=== PATIENT | female | born 1935 | race Caucasian/White ===

== ENCOUNTER 2019-05-26 19:00 | Inpatient (IN) ==
[2019-05-26 20:54] LABS: Basophils % 0.1 % (0.0-0.8); Hematocrit 40.8 VOL% (35.7-47.0); Hemoglobin 12.7 GM/DL (12.0-16.0); Lymphocytes # 0.8 10*3/uL (1.4-4.0); Mean Corpuscular HGB Conc 31.1 GM/DL (32-36); Mean Corpuscular Volume 90.9 FL (87-102); Mean Platelet Volume 9.1 FL (9.6-12.0); Monocytes % 2.6 % (1.7-12.7); Neutrophils % 88.3 % (38.7-73.9); Platelet Count 170 T/CUMM (130-400); Red Blood Count 4.49 MC/CUMM (3.8-5.5); Red Cell Distribution Width 15.9 % (9.3-17.3); White Blood Count 9.7 T/CUMM (4-12)
[2019-05-26 21:07] LABS: Ferritin 237.8 ng/ml (8-252); Osmolality,Calculated 283.5 MOS/KG (273-304)
[2019-05-26] MEDS ORDERED: DEXTROSE 50% 25 GM/50 ML VIAL IV PRN ×2 (23:11→23:17)
[2019-05-26] MEDS ORDERED: GLUCAGON 1 MG VIAL IM PRN (23:11)
[2019-05-26] MEDS ORDERED: ACETAMINOPHEN 325 MG TABLET PO PRN (23:17)
[2019-05-26] MEDS ORDERED: ONDANSETRON 4 MG/2 ML VIAL IV PRN (23:17)
[2019-05-26] MEDS ORDERED: guaiFENesin/CODEINE 5 ML LIQUID PO PRN (23:26)
[2019-05-26] MEDS ORDERED: AZITHROMYCIN INJ 500 MG in SODIUM CHLORIDE 0.9% 250 ML IV SCH (23:30)
[2019-05-27] MEDS: SODIUM CHLORIDE 0.9% 1,000 ML IV SCH ×2 (03:30→23:35)
[2019-05-27] MEDS: AZITHROMYCIN 250 MG TABLET PO SCH ×2 (03:30→10:14)
[2019-05-27] MEDS: cefTRIAXone 1,000 MG in SYRINGE 1 EACH IV SCH (03:30)
[2019-05-27 05:01] LABS: Amorphous Crystals,Urine Occasional /HPF (Few); Apearance,Urine CLEAR (Clear); Bacteria,Urine Occasional /HPF (Few); Bilirubin,Urine Negative (Negative); Blood, Urine Negative (Negative); Glucose,Urine (UA) >=500 mg/dL (Negative); Hyaline Casts,Urine 1 /LPF (0-3); Ketones,Urine Negative (Negative); Mucus,Urine Occasional /LPF (Occasional); Nitrite,Urine Negative (Negative); Protein,Urine 30 MG/DL; RBC,Urine <1 /HPF (0-4); Squamous Epithelial Cell,Urine Occasional /HPF (0-10); Urine Color Yellow (Yellow); Urine Specific Gravity 1.014 (1.001-1.035); Urine Urobilinogen < 2.0 EU/DL (0.2-1.0); WBC,Urine <1 /HPF (0-6)
[2019-05-27 07:14] LABS: Basophils % 0.2 % (0.0-0.8); Hematocrit 38.5 VOL% (35.7-47.0); Hemoglobin 12.6 GM/DL (12.0-16.0); Immature Granulocytes Absolute 0.12 #; Lymphocytes # 1.5 10*3/uL (1.4-4.0); Lymphocytes % 11.7 % (21.3-54.2); Mean Corpuscular HGB Conc 32.7 GM/DL (32-36); Mean Corpuscular Volume 88.5 FL (87-102); Mean Platelet Volume 9.3 FL (9.6-12.0); Monocytes % 4.6 % (1.7-12.7); Neutrophils % 82.5 % (38.7-73.9); Platelet Count 290 T/CUMM (130-400); Red Blood Count 4.35 MC/CUMM (3.8-5.5); Red Cell Distribution Width 15.9 % (9.3-17.3); White Blood Count 12.4 T/CUMM (4-12)
[2019-05-27] MEDS: INSULIN REGULAR 100 UNIT/ML SUBCUT SCH ×4 (09:31→21:55)
[2019-05-27] MEDS: PANTOPRAZOLE 40 MG TABLET PO SCH (10:13)
[2019-05-27] MEDS: ENOXAPARIN 30 MG/0.3 ML SYRINGE SUBCUT SCH (10:13)
[2019-05-27 12:29] LABS: Alanine Aminotransferase 40 U/L (13-56); Albumin 2.6 G/DL (3.4-5.0); Alkaline Phosphatase 54 U/L (45-117); Aspartate Amino Transferase 44 U/L (0-37); Bilirubin,Total < 0.39 MG/DL (0.2-1.0); Blood Urea Nitrogen 23 MG/DL (7-18); Calcium 8.3 MG/DL (8.5-10.1); Estimated Glom Filtration Rate 64 ML/MIN; Glucose 116 MG/DL (74-106); Osmolality,Calculated 272.2 MOS/KG (273-304); Total Protein 6.6 G/DL (6.4-8.3)
[2019-05-27] MEDS: predniSONE 20 MG TABLET PO SCH (21:42)
[2019-05-27] MEDS: GABAPENTIN 300 MG CAPSULE PO SCH (21:42)
[2019-05-28] MEDS: cefTRIAXone 1,000 MG in SYRINGE 1 EACH IV SCH ×2 (01:35→23:49)
[2019-05-28] MEDS: INSULIN REGULAR 100 UNIT/ML SUBCUT SCH ×4 (09:03→23:23)
[2019-05-28] MEDS: GABAPENTIN 300 MG CAPSULE PO SCH ×2 (09:05→23:22)
[2019-05-28] MEDS: predniSONE 20 MG TABLET PO SCH ×3 (09:05→23:22)
[2019-05-28] MEDS: MULTIVITAMIN (CENTRUM) TABLET PO SCH (09:05)
[2019-05-28] MEDS: AZITHROMYCIN 250 MG TABLET PO SCH (09:05)
[2019-05-28] MEDS: PANTOPRAZOLE 40 MG TABLET PO SCH (09:05)
[2019-05-28] MEDS: ENOXAPARIN 30 MG/0.3 ML SYRINGE SUBCUT SCH (09:05)
[2019-05-28] MEDS: COENZYME Q10 100 MG CAPSULE PO SCH (09:05)
[2019-05-28] MEDS: SODIUM CHLORIDE 0.9% 1,000 ML IV SCH (16:45)
[2019-05-28 17:10] LABS: Basophils # 0.1 10*3/uL (0.0-0.2); Basophils % 0.3 % (0.0-0.8); Hematocrit 43.3 VOL% (35.7-47.0); Hemoglobin 14.1 GM/DL (12.0-16.0); Immature Granulocytes % 0.7 %; Immature Granulocytes Absolute 0.15 #; Lymphocytes # 1.1 10*3/uL (1.4-4.0); Lymphocytes % 4.8 % (21.3-54.2); Mean Corpuscular HGB Conc 32.6 GM/DL (32-36); Mean Corpuscular Volume 87.3 FL (87-102); Mean Platelet Volume 9.4 FL (9.6-12.0); Monocytes % 2.4 % (1.7-12.7); Neutrophils % 91.8 % (38.7-73.9); Platelet Count 341 T/CUMM (130-400); Red Blood Count 4.96 MC/CUMM (3.8-5.5); Red Cell Distribution Width 15.9 % (9.3-17.3)
[2019-05-28 17:12] LABS: White Blood Count 22.5 T/CUMM (4-12)
[2019-05-28 17:16] LABS: Osmolality,Calculated 293.3 MOS/KG (273-304)
[2019-05-28 17:19] LABS: Band Neutrophils 5 % (0-10); Burr Cells Slight; Lymphocytes 4 % (20-55); Platelet Estimate Normal; Poikilocytosis Slight; Segmented Neutrophils 88 % (50-85); Total Cells Counted 100
[2019-05-29] MEDS ORDERED: ZINC SULFATE 220 MG CAPSULE PO ONE (02:00)
[2019-05-29] MEDS: HYDROXYCHLOROQUINE 200 MG TABLET PO SCH ×2 (03:00→14:33)
[2019-05-29 06:09] LABS: Basophils # 0.1 10*3/uL (0.0-0.2); Basophils % 0.2 % (0.0-0.8); Hemoglobin 13.5 GM/DL (12.0-16.0); Immature Granulocytes % 0.9 %; Immature Granulocytes Absolute 0.21 #; Lymphocytes # 1.4 10*3/uL (1.4-4.0); Lymphocytes % 5.8 % (21.3-54.2); Mean Corpuscular HGB Conc 31.4 GM/DL (32-36); Mean Corpuscular Volume 91.3 FL (87-102); Mean Platelet Volume 9.8 FL (9.6-12.0); Monocytes % 2.8 % (1.7-12.7); Neutrophils % 90.3 % (38.7-73.9); Platelet Count 325 T/CUMM (130-400); Red Blood Count 4.71 MC/CUMM (3.8-5.5); White Blood Count 24.2 T/CUMM (4-12)
[2019-05-29 06:30] LABS: Calcium 8.9 MG/DL (8.5-10.1)
[2019-05-29 06:37] LABS: Lymphocytes 4 % (20-55); Platelet Estimate Normal; Segmented Neutrophils 93 % (50-85); Total Cells Counted 100
[2019-05-29] MEDS: predniSONE 20 MG TABLET PO SCH ×3 (09:31→21:55)
[2019-05-29] MEDS: GABAPENTIN 300 MG CAPSULE PO SCH ×2 (09:31→21:55)
[2019-05-29] MEDS: MULTIVITAMIN (CENTRUM) TABLET PO SCH (09:31)
[2019-05-29] MEDS: COENZYME Q10 100 MG CAPSULE PO SCH (09:31)
[2019-05-29] MEDS: AZITHROMYCIN 250 MG TABLET PO SCH (09:31)
[2019-05-29] MEDS: ENOXAPARIN 30 MG/0.3 ML SYRINGE SUBCUT SCH (09:32)
[2019-05-29] MEDS: PANTOPRAZOLE 40 MG TABLET PO SCH (09:32)
[2019-05-29] MEDS: CEFEPIME 1,000 MG in SODIUM CHLORIDE 0.9% 100 ML IV SCH ×3 (09:32→21:55)
[2019-05-29] MEDS: INSULIN REGULAR 100 UNIT/ML SUBCUT SCH ×4 (11:09→22:45)
[2019-05-29] MEDS: SODIUM CHLORIDE 0.9% 1,000 ML IV SCH (13:10)
[2019-05-30] MEDS: CEFEPIME 1,000 MG in SODIUM CHLORIDE 0.9% 100 ML IV SCH ×4 (04:30→23:24)
[2019-05-30 05:50] LABS: Basophils % 0.1 % (0.0-0.8); Hemoglobin 9.1 GM/DL (12.0-16.0); Immature Granulocytes % 1.1 %; Immature Granulocytes Absolute 0.18 #; Lymphocytes # 0.7 10*3/uL (1.4-4.0); Lymphocytes % 4.2 % (21.3-54.2); Mean Corpuscular HGB Conc 32.5 GM/DL (32-36); Mean Corpuscular Volume 89.2 FL (87-102); Mean Platelet Volume 9.3 FL (9.6-12.0); Monocytes % 2.2 % (1.7-12.7); Neutrophils % 92.4 % (38.7-73.9); Platelet Count 207 T/CUMM (130-400); Red Blood Count 3.14 MC/CUMM (3.8-5.5); Red Cell Distribution Width 15.6 % (9.3-17.3); White Blood Count 16.5 T/CUMM (4-12)
[2019-05-30] MEDS ORDERED: HYDROXYCHLOROQUINE 200 MG TABLET PO SCH (06:00)
[2019-05-30 06:22] LABS: Calcium 6.5 MG/DL (8.5-10.1); Osmolality,Calculated 286.3 MOS/KG (273-304)
[2019-05-30 06:28] LABS: Band Neutrophils 12 % (0-10); Lymphocytes 4 % (20-55); Segmented Neutrophils 81 % (50-85); Total Cells Counted 100
[2019-05-30 06:29] LABS: Hypochromasia 1+; Microcytosis Slight; Polychromasia Slight
[2019-05-30 06:30] LABS: Platelet Estimate Normal
[2019-05-30] MEDS ORDERED: AZITHROMYCIN 250 MG TABLET PO SCH (11:00)
[2019-05-30] MEDS: POTASSIUM CHLORIDE 20 MEQ TABLET PO SCH ×3 (11:52→21:09)
[2019-05-30] MEDS: GABAPENTIN 300 MG CAPSULE PO SCH ×2 (11:52→21:00)
[2019-05-30] MEDS: INSULIN REGULAR 100 UNIT/ML SUBCUT SCH ×4 (11:52→21:25)
[2019-05-30] MEDS: predniSONE 20 MG TABLET PO SCH ×3 (11:53→21:00)
[2019-05-30] MEDS: ENOXAPARIN 40 MG/0.4 ML SYRINGE SUBCUT SCH (11:53)
[2019-05-30] MEDS: MULTIVITAMIN (CENTRUM) TABLET PO SCH (11:53)
[2019-05-30] MEDS: PANTOPRAZOLE 40 MG TABLET PO SCH (11:53)
[2019-05-30] MEDS: COENZYME Q10 100 MG CAPSULE PO SCH (11:53)
[2019-05-30] MEDS: AZITHROMYCIN 250 MG TABLET PO SCH (11:57)
[2019-05-30] MEDS: SODIUM CHLORIDE 0.9% 1,000 ML IV SCH (12:08)
[2019-05-31] MEDS: CEFEPIME 1,000 MG in SODIUM CHLORIDE 0.9% 100 ML IV SCH ×4 (04:13→21:30)
[2019-05-31] MEDS ORDERED: ETOMIDATE 20 MG/10 ML VIAL IV ONE ×2 (06:08→06:15)
[2019-05-31] MEDS ORDERED: VECURONIUM 10 MG VIAL IV ONE ×2 (06:08→06:17)
[2019-05-31 06:29] LABS: Basophils % 0.2 % (0.0-0.8); Hematocrit 34.8 VOL% (35.7-47.0); Hemoglobin 11.1 GM/DL (12.0-16.0); Immature Granulocytes % 1.1 %; Lymphocytes # 0.7 10*3/uL (1.4-4.0); Lymphocytes % 3.9 % (21.3-54.2); Mean Corpuscular HGB Conc 31.9 GM/DL (32-36); Mean Corpuscular Volume 90.6 FL (87-102); Mean Platelet Volume 9.6 FL (9.6-12.0); Monocytes % 1.9 % (1.7-12.7); Neutrophils % 92.9 % (38.7-73.9); Platelet Count 276 T/CUMM (130-400); Red Blood Count 3.84 MC/CUMM (3.8-5.5); Red Cell Distribution Width 15.8 % (9.3-17.3); White Blood Count 18.8 T/CUMM (4-12)
[2019-05-31 06:47] LABS: Calcium 8.2 MG/DL (8.5-10.1); Osmolality,Calculated 280.7 MOS/KG (273-304)
[2019-05-31 07:08] LABS: Band Neutrophils 5 % (0-10); Hypochromasia 1+; Lymphocytes 3 % (20-55); Microcytosis 1+; Segmented Neutrophils 91 % (50-85); Total Cells Counted 100
[2019-05-31 07:09] LABS: Platelet Estimate Normal
[2019-05-31 08:14] LABS: ABG Base Excess -4.6 MMOL/L (-2.5-2.5); ABG HCO3 19.3 MMOL/L (20-26); ABG Oxygen Saturation 99.1 % (95-100); ABG PH 7.399 (7.35-7.45); ABG PO2 242.2 MM HG (80-95); ABG TCO2 20.3 MMOL/L (23-27)
[2019-05-31] MEDS: predniSONE 20 MG TABLET PO SCH ×3 (10:00→22:23)
[2019-05-31] MEDS: ZINC SULFATE 220 MG CAPSULE PO SCH (10:00)
[2019-05-31] MEDS: COENZYME Q10 100 MG CAPSULE PO SCH (10:00)
[2019-05-31] MEDS: GABAPENTIN 300 MG CAPSULE PO SCH ×2 (10:00→22:22)
[2019-05-31] MEDS: MULTIVITAMIN LIQUID (CENTRUM) 60 ML BOTTLE NG SCH (10:00)
[2019-05-31] MEDS: ENOXAPARIN 40 MG/0.4 ML SYRINGE SUBCUT SCH (10:00)
[2019-05-31] MEDS: PANTOPRAZOLE 40 MG VIAL IV SCH (10:02)
[2019-05-31 11:30] LABS: Apearance,Urine CLOUDY (Clear); Bacteria,Urine Occasional /HPF (Few); Bilirubin,Urine Negative (Negative); Blood, Urine Negative (Negative); Glucose,Urine (UA) Negative (Negative); Hyaline Casts,Urine 92 /LPF (0-3); Ketones,Urine 20 mg/dL (Negative); Mucus,Urine Many /LPF (Occasional); Nitrite,Urine Negative (Negative); Protein,Urine Negative; Squamous Epithelial Cell,Urine Occasional /HPF (0-10); Urine Color Yellow (Yellow); Urine Specific Gravity 1.018 (1.001-1.035); Urine Urobilinogen < 2.0 EU/DL (0.2-1.0); WBC,Urine 3 /HPF (0-6)
[2019-05-31] MEDS: INSULIN REGULAR 100 UNIT/ML SUBCUT SCH ×3 (11:54→22:22)
[2019-05-31] MEDS ORDERED: AZITHROMYCIN INJ 500 MG in SODIUM CHLORIDE 0.9% 250 ML IV ONE (15:00)
[2019-05-31] MEDS: HYDROXYCHLOROQUINE 200 MG TABLET PO SCH (22:22)
[2019-06-01] MEDS: CEFEPIME 1,000 MG in SODIUM CHLORIDE 0.9% 100 ML IV SCH ×4 (03:29→22:30)
[2019-06-01] MEDS: INSULIN REGULAR 100 UNIT/ML SUBCUT SCH ×4 (07:49→23:24)
[2019-06-01] MEDS: COENZYME Q10 100 MG CAPSULE PO SCH (10:00)
[2019-06-01] MEDS: ENOXAPARIN 40 MG/0.4 ML SYRINGE SUBCUT SCH (10:00)
[2019-06-01] MEDS: MULTIVITAMIN LIQUID (CENTRUM) 60 ML BOTTLE NG SCH (10:00)
[2019-06-01] MEDS: predniSONE 20 MG TABLET PO SCH ×3 (10:00→23:25)
[2019-06-01] MEDS: HYDROXYCHLOROQUINE 200 MG TABLET PO SCH ×2 (10:00→23:25)
[2019-06-01] MEDS: AZITHROMYCIN 250 MG TABLET PO SCH (10:00)
[2019-06-01] MEDS: GABAPENTIN 300 MG CAPSULE PO SCH ×2 (10:00→23:25)
[2019-06-01] MEDS: PANTOPRAZOLE 40 MG VIAL IV SCH (10:02)
[2019-06-01 10:15] LABS: Basophils % 0.2 % (0.0-0.8); Hematocrit 34.3 VOL% (35.7-47.0); Hemoglobin 10.9 GM/DL (12.0-16.0); Immature Granulocytes % 0.9 %; Immature Granulocytes Absolute 0.16 #; Lymphocytes # 0.9 10*3/uL (1.4-4.0); Lymphocytes % 5.2 % (21.3-54.2); Mean Corpuscular HGB Conc 31.8 GM/DL (32-36); Mean Corpuscular Volume 90.5 FL (87-102); Mean Platelet Volume 9.8 FL (9.6-12.0); Monocytes % 2.4 % (1.7-12.7); Neutrophils % 91.3 % (38.7-73.9); Platelet Count 264 T/CUMM (130-400); Red Blood Count 3.79 MC/CUMM (3.8-5.5); Red Cell Distribution Width 15.8 % (9.3-17.3); White Blood Count 16.9 T/CUMM (4-12)
[2019-06-01 10:34] LABS: Calcium 8.4 MG/DL (8.5-10.1); Osmolality,Calculated 277.7 MOS/KG (273-304)
[2019-06-01 10:36] LABS: Band Neutrophils 11 % (0-10); Lymphocytes 6 % (20-55); Platelet Estimate Normal; Segmented Neutrophils 82 % (50-85); Total Cells Counted 100
[2019-06-01 10:37] LABS: Anisocytosis 1+; Macrocytosis 1+; Smudge Cells Few
[2019-06-01] MEDS ORDERED: LIDOCAINE 2% 20 ML VIAL ONE (10:40)
[2019-06-01 11:58] LABS: ABG Base Excess -6.2 MMOL/L (-2.5-2.5); ABG HCO3 19.3 MMOL/L (20-26); ABG Oxygen Saturation 97.3 % (95-100); ABG PCO2 25.1 MM HG (35-48); ABG TCO2 14.8 MMOL/L (23-27)
[2019-06-02] MEDS: CEFEPIME 1,000 MG in SODIUM CHLORIDE 0.9% 100 ML IV SCH ×4 (03:00→20:50)
[2019-06-02] MEDS: MULTIVITAMIN LIQUID (CENTRUM) 60 ML BOTTLE NG SCH (10:11)
[2019-06-02] MEDS: INSULIN REGULAR 100 UNIT/ML SUBCUT SCH ×4 (10:11→20:18)
[2019-06-02] MEDS: ENOXAPARIN 40 MG/0.4 ML SYRINGE SUBCUT SCH (10:11)
[2019-06-02] MEDS: COENZYME Q10 100 MG CAPSULE PO SCH (10:11)
[2019-06-02] MEDS: GABAPENTIN 300 MG CAPSULE PO SCH ×2 (10:11→20:50)
[2019-06-02] MEDS: HYDROXYCHLOROQUINE 200 MG TABLET PO SCH ×2 (10:12→20:50)
[2019-06-02] MEDS: PANTOPRAZOLE 40 MG VIAL IV SCH (10:12)
[2019-06-02] MEDS: ZINC SULFATE 220 MG CAPSULE PO SCH (10:12)
[2019-06-02] MEDS: predniSONE 20 MG TABLET PO SCH ×3 (10:12→20:50)
[2019-06-02] MEDS: AZITHROMYCIN 250 MG TABLET PO SCH (10:12)
[2019-06-02] MEDS: MORPHINE 4 MG/1 ML VIAL IV PRN (14:45)
[2019-06-03] MEDS: CEFEPIME 1,000 MG in SODIUM CHLORIDE 0.9% 100 ML IV SCH ×3 (04:03→21:39)
[2019-06-03 05:42] LABS: Basophils # 0.1 10*3/uL (0.0-0.2); Basophils % 0.5 % (0.0-0.8); Hematocrit 33.4 VOL% (35.7-47.0); Hemoglobin 10.8 GM/DL (12.0-16.0); Immature Granulocytes % 3.3 %; Immature Granulocytes Absolute 0.49 #; Lymphocytes # 0.8 10*3/uL (1.4-4.0); Lymphocytes % 5.2 % (21.3-54.2); Mean Corpuscular HGB Conc 32.3 GM/DL (32-36); Mean Corpuscular Volume 88.4 FL (87-102); Mean Platelet Volume 9.6 FL (9.6-12.0); Monocytes % 2.2 % (1.7-12.7); Neutrophils % 88.8 % (38.7-73.9); Platelet Count 248 T/CUMM (130-400); Red Blood Count 3.78 MC/CUMM (3.8-5.5); Red Cell Distribution Width 15.9 % (9.3-17.3)
[2019-06-03 06:06] LABS: Band Neutrophils 3 % (0-10); Hypochromasia 1+; Lymphocytes 2 % (20-55); Platelet Estimate Adequate; Segmented Neutrophils 90 % (50-85); Total Cells Counted 100
[2019-06-03 06:07] LABS: Microcytosis Slight
[2019-06-03 06:10] LABS: Albumin 1.8 G/DL (3.4-5.0); Bilirubin,Total 1.3 MG/DL (0.2-1.0); Calcium 8.7 MG/DL (8.5-10.1); Osmolality,Calculated 279.5 MOS/KG (273-304); Total Protein 5.7 G/DL (6.4-8.3)
[2019-06-03] MEDS: GABAPENTIN 300 MG CAPSULE PO SCH ×2 (08:45→21:43)
[2019-06-03] MEDS: PANTOPRAZOLE 40 MG VIAL IV SCH (08:45)
[2019-06-03] MEDS: HYDROXYCHLOROQUINE 200 MG TABLET PO SCH ×2 (08:45→21:43)
[2019-06-03] MEDS: AZITHROMYCIN 250 MG TABLET PO SCH (08:46)
[2019-06-03] MEDS: COENZYME Q10 100 MG CAPSULE PO SCH (08:46)
[2019-06-03] MEDS: predniSONE 20 MG TABLET PO SCH ×3 (08:46→21:43)
[2019-06-03] MEDS: ENOXAPARIN 40 MG/0.4 ML SYRINGE SUBCUT SCH (08:46)
[2019-06-03] MEDS: MULTIVITAMIN LIQUID (CENTRUM) 60 ML BOTTLE NG SCH (08:49)
[2019-06-03 11:58] LABS: ABG Base Excess -6.6 MMOL/L (-2.5-2.5); ABG HCO3 18.9 MMOL/L (20-26); ABG Oxygen Saturation 89.2 % (95-100); ABG PCO2 25.2 MM HG (35-48); ABG PH 7.422 (7.35-7.45); ABG PO2 56.4 MM HG (80-95); ABG TCO2 14.7 MMOL/L (23-27); Allen Test Positive; Pt O2 Delivery Device Ventilator
[2019-06-03] MEDS ORDERED: CEFEPIME 1,000 MG in SODIUM CHLORIDE 0.9% 100 ML IV ONE (13:00)
[2019-06-03] MEDS: INSULIN REGULAR 100 UNIT/ML SUBCUT SCH ×3 (14:42→20:58)
[2019-06-04] MEDS: CEFEPIME 1,000 MG in SODIUM CHLORIDE 0.9% 100 ML IV SCH ×4 (02:22→20:39)
[2019-06-04 04:20] LABS: ABG HCO3 20.2 MMOL/L (20-26); ABG Oxygen Saturation 94.8 % (95-100); ABG PCO2 27.1 MM HG (35-48); ABG PH 7.433 (7.35-7.45); ABG PO2 70.2 MM HG (80-95); ABG TCO2 16.4 MMOL/L (23-27); Allen Test Positive; Pt O2 Delivery Device Ventilator
[2019-06-04 06:08] LABS: Basophils % 0.2 % (0.0-0.8); Hematocrit 30.4 VOL% (35.7-47.0); Hemoglobin 9.9 GM/DL (12.0-16.0); Immature Granulocytes % 4.8 %; Immature Granulocytes Absolute 0.65 #; Lymphocytes # 0.5 10*3/uL (1.4-4.0); Mean Corpuscular HGB Conc 32.6 GM/DL (32-36); Mean Corpuscular Volume 87.4 FL (87-102); Mean Platelet Volume 10.2 FL (9.6-12.0); Monocytes % 2.1 % (1.7-12.7); Neutrophils % 88.9 % (38.7-73.9); Platelet Count 242 T/CUMM (130-400); Red Blood Count 3.48 MC/CUMM (3.8-5.5); Red Cell Distribution Width 15.7 % (9.3-17.3); White Blood Count 13.6 T/CUMM (4-12)
[2019-06-04 06:28] LABS: Albumin 1.6 G/DL (3.4-5.0); Bilirubin,Total 0.5 MG/DL (0.2-1.0); Calcium 8.3 MG/DL (8.5-10.1); Osmolality,Calculated 279.5 MOS/KG (273-304); Total Protein 5.4 G/DL (6.4-8.3)
[2019-06-04 06:29] LABS: Band Neutrophils 4 % (0-10); Hypochromasia 1+; Lymphocytes 3 % (20-55); Microcytosis Slight; Promyelocytes 2 %; Segmented Neutrophils 88 % (50-85); Total Cells Counted 100
[2019-06-04 06:30] LABS: Platelet Estimate Normal; Tear Drop Cells Slight
[2019-06-04] MEDS ORDERED: POTASSIUM CHLORIDE RIDER 10 MEQ in PREMIX 1 EACH IV PRN (07:50)
[2019-06-04] MEDS: INSULIN REGULAR 100 UNIT/ML SUBCUT SCH ×3 (08:15→18:03)
[2019-06-04] MEDS: AZITHROMYCIN 250 MG TABLET PO SCH (09:11)
[2019-06-04] MEDS: MULTIVITAMIN LIQUID (CENTRUM) 60 ML BOTTLE NG SCH (09:11)
[2019-06-04] MEDS: COENZYME Q10 100 MG CAPSULE PO SCH (09:11)
[2019-06-04] MEDS: predniSONE 20 MG TABLET PO SCH ×3 (09:11→20:39)
[2019-06-04] MEDS: ENOXAPARIN 40 MG/0.4 ML SYRINGE SUBCUT SCH (09:11)
[2019-06-04] MEDS: GABAPENTIN 300 MG CAPSULE PO SCH ×2 (09:11→20:39)
[2019-06-04] MEDS: POTASSIUM CHLORIDE RIDER 20 MEQ in PREMIX 1 EACH IV PRN ×2 (09:12→11:13)
[2019-06-04] MEDS: HYDROXYCHLOROQUINE 200 MG TABLET PO SCH ×2 (09:12→20:39)
[2019-06-04] MEDS: PANTOPRAZOLE 40 MG VIAL IV SCH (09:12)
[2019-06-04] MEDS ORDERED: POTASSIUM PHOSPHATE 30 MMOL in SODIUM CHLORIDE 0.9% 250 ML IV ONE (12:00)
[2019-06-05] MEDS: INSULIN REGULAR 100 UNIT/ML SUBCUT SCH ×4 (00:04→17:10)
[2019-06-05] MEDS: CEFEPIME 1,000 MG in SODIUM CHLORIDE 0.9% 100 ML IV SCH ×4 (02:39→20:11)
[2019-06-05 03:57] LABS: ABG Base Excess -0.9 MMOL/L (-2.5-2.5); ABG HCO3 23.6 MMOL/L (20-26); ABG Oxygen Saturation 95.1 % (95-100); ABG PCO2 28.5 MM HG (35-48); ABG PH 7.482 (7.35-7.45); ABG PO2 70.9 MM HG (80-95); ABG TCO2 18.5 MMOL/L (23-27); Allen Test Positive; Pt O2 Delivery Device Ventilator
[2019-06-05 05:24] LABS: Basophils # 0.1 10*3/uL (0.0-0.2); Basophils % 0.4 % (0.0-0.8); Hematocrit 30.4 VOL% (35.7-47.0); Hemoglobin 9.6 GM/DL (12.0-16.0); Immature Granulocytes % 5.7 %; Lymphocytes # 0.8 10*3/uL (1.4-4.0); Lymphocytes % 5.2 % (21.3-54.2); Mean Corpuscular HGB Conc 31.6 GM/DL (32-36); Mean Corpuscular Volume 89.9 FL (87-102); Mean Platelet Volume 10.2 FL (9.6-12.0); Monocytes % 1.9 % (1.7-12.7); NRBC # 0.02 10*3/uL; Neutrophils % 86.8 % (38.7-73.9); Platelet Count 241 T/CUMM (130-400); Red Blood Count 3.38 MC/CUMM (3.8-5.5); Red Cell Distribution Width 16.1 % (9.3-17.3); White Blood Count 15.8 T/CUMM (4-12)
[2019-06-05 05:35] LABS: Calcium 8.2 MG/DL (8.5-10.1); Osmolality,Calculated 286.4 MOS/KG (273-304)
[2019-06-05 06:10] LABS: Hypochromasia 1+; Lymphocytes 10 % (20-55); Microcytosis Slight; Ovalocytes Slight; Platelet Estimate Adequate; Segmented Neutrophils 86 % (50-85); Total Cells Counted 100
[2019-06-05] MEDS: GABAPENTIN 300 MG CAPSULE PO SCH ×2 (08:32→20:35)
[2019-06-05] MEDS: HYDROXYCHLOROQUINE 200 MG TABLET PO SCH (08:33)
[2019-06-05] MEDS: predniSONE 20 MG TABLET PO SCH ×3 (08:33→20:36)
[2019-06-05] MEDS: COENZYME Q10 100 MG CAPSULE PO SCH (08:33)
[2019-06-05] MEDS: PANTOPRAZOLE 40 MG VIAL IV SCH (08:34)
[2019-06-05] MEDS: ENOXAPARIN 40 MG/0.4 ML SYRINGE SUBCUT SCH (08:35)
[2019-06-05] MEDS: MULTIVITAMIN LIQUID (CENTRUM) 60 ML BOTTLE NG SCH (14:31)
[2019-06-05] MEDS: POTASSIUM CHLORIDE 20 MEQ/15 ML UDCUP PER TUBE SCH (20:35)
[2019-06-05] MEDS: MORPHINE 4 MG/1 ML VIAL IV PRN (22:45)
[2019-06-06] MEDS: INSULIN REGULAR 100 UNIT/ML SUBCUT SCH ×5 (00:15→23:50)
[2019-06-06 04:54] LABS: ABG Base Excess -1.3 MMOL/L (-2.5-2.5); ABG HCO3 22.8 MMOL/L (20-26); ABG Oxygen Saturation 98.2 % (95-100); ABG PCO2 35.7 MM HG (35-48); ABG PH 7.423 (7.35-7.45); ABG PO2 130.6 MM HG (80-95); ABG TCO2 23.9 MMOL/L (23-27); Allen Test Positive; Pt O2 Delivery Device Ventilator
[2019-06-06 05:10] LABS: Basophils # 0.1 10*3/uL (0.0-0.2); Basophils % 0.5 % (0.0-0.8); Hematocrit 29.1 VOL% (35.7-47.0); Immature Granulocytes % 3.9 %; Immature Granulocytes Absolute 0.68 #; Lymphocytes # 0.6 10*3/uL (1.4-4.0); Lymphocytes % 3.4 % (21.3-54.2); Mean Corpuscular HGB Conc 30.9 GM/DL (32-36); Mean Corpuscular Volume 92.4 FL (87-102); Mean Platelet Volume 10.4 FL (9.6-12.0); Monocytes % 1.3 % (1.7-12.7); NRBC # 0.02 10*3/uL; Neutrophils % 90.9 % (38.7-73.9); Platelet Count 166 T/CUMM (130-400); Red Blood Count 3.15 MC/CUMM (3.8-5.5); Red Cell Distribution Width 16.2 % (9.3-17.3); White Blood Count 17.4 T/CUMM (4-12)
[2019-06-06 05:21] LABS: Calcium 8.4 MG/DL (8.5-10.1); Osmolality,Calculated 287.1 MOS/KG (273-304)
[2019-06-06 05:36] LABS: Band Neutrophils 6 % (0-10); Hypochromasia 1+; Lymphocytes 2 % (20-55); Platelet Estimate Adequate; Segmented Neutrophils 91 % (50-85); Total Cells Counted 100
[2019-06-06 05:37] LABS: Microcytosis Slight
[2019-06-06] MEDS: ROCURONIUM 500 MG in SODIUM CHLORIDE 0.9% 500 ML IV SCH (05:59)
[2019-06-06] MEDS: PANTOPRAZOLE 40 MG VIAL IV SCH (09:34)
[2019-06-06] MEDS: ENOXAPARIN 40 MG/0.4 ML SYRINGE SUBCUT SCH (09:37)
[2019-06-06] MEDS: GABAPENTIN 100 MG CAPSULE NG SCH ×2 (09:37→20:28)
[2019-06-06] MEDS: COENZYME Q10 100 MG CAPSULE PO SCH (09:37)
[2019-06-06] MEDS: POTASSIUM CHLORIDE 20 MEQ/15 ML UDCUP PER TUBE SCH ×2 (09:38→20:28)
[2019-06-06] MEDS: MULTIVITAMIN LIQUID (CENTRUM) 60 ML BOTTLE NG SCH (09:39)
[2019-06-06] MEDS: predniSONE 20 MG TABLET PO SCH ×3 (09:39→20:28)
[2019-06-06] MEDS ORDERED: POTASSIUM PHOSPHATE 30 MMOL in SODIUM CHLORIDE 0.9% 250 ML IV ONE (16:00)
[2019-06-07] MEDS: ROCURONIUM 500 MG in SODIUM CHLORIDE 0.9% 500 ML IV SCH (03:48)
[2019-06-07 05:04] LABS: Basophils # 0.1 10*3/uL (0.0-0.2); Basophils % 0.3 % (0.0-0.8); Hematocrit 26.5 VOL% (35.7-47.0); Hemoglobin 8.2 GM/DL (12.0-16.0); Immature Granulocytes % 3.9 %; Immature Granulocytes Absolute 0.82 #; Lymphocytes # 0.6 10*3/uL (1.4-4.0); Lymphocytes % 2.8 % (21.3-54.2); Mean Corpuscular HGB Conc 30.9 GM/DL (32-36); Mean Corpuscular Volume 92.3 FL (87-102); Mean Platelet Volume 11.2 FL (9.6-12.0); Monocytes % 1.2 % (1.7-12.7); Neutrophils % 91.8 % (38.7-73.9); Platelet Count 133 T/CUMM (130-400); Red Blood Count 2.87 MC/CUMM (3.8-5.5); Red Cell Distribution Width 16.2 % (9.3-17.3); White Blood Count 21.2 T/CUMM (4-12)
[2019-06-07 05:13] LABS: Allen Test Positive; Pt O2 Delivery Device Ventilator
[2019-06-07 05:14] LABS: ABG Base Excess 3.8 MMOL/L (-2.5-2.5); ABG HCO3 27.5 MMOL/L (20-26); ABG Oxygen Saturation 97.3 % (95-100); ABG PCO2 37.7 MM HG (35-48); ABG PH 7.481 (7.35-7.45); ABG PO2 95.6 MM HG (80-95); ABG TCO2 28.7 MMOL/L (23-27)
[2019-06-07 05:27] LABS: Calcium 8.3 MG/DL (8.5-10.1); Osmolality,Calculated 292.1 MOS/KG (273-304)
[2019-06-07 06:03] LABS: Band Neutrophils 10 % (0-10); Eosinophils 1 % (0-10); Lymphocytes 2 % (20-55); Metamyelocytes 2 %; Nucleated Red Blood Cells 1 (0-5); Segmented Neutrophils 84 % (50-85); Total Cells Counted 100
[2019-06-07 06:04] LABS: Anisocytosis 1+; Macrocytosis 1+; Platelet Estimate Decreased
[2019-06-07] MEDS: INSULIN REGULAR 100 UNIT/ML SUBCUT SCH ×3 (06:33→17:42)
[2019-06-07] MEDS: POTASSIUM CHLORIDE 20 MEQ/15 ML UDCUP PER TUBE SCH (08:31)
[2019-06-07] MEDS: ENOXAPARIN 40 MG/0.4 ML SYRINGE SUBCUT SCH (08:31)
[2019-06-07] MEDS: predniSONE 20 MG TABLET PO SCH ×3 (08:32→22:04)
[2019-06-07] MEDS: COENZYME Q10 100 MG CAPSULE PO SCH (08:32)
[2019-06-07] MEDS: GABAPENTIN 100 MG CAPSULE NG SCH ×2 (08:32→22:04)
[2019-06-07] MEDS: MULTIVITAMIN LIQUID (CENTRUM) 60 ML BOTTLE NG SCH (08:34)
[2019-06-07] MEDS: PANTOPRAZOLE 40 MG VIAL IV SCH (08:36)
[2019-06-07] MEDS: MORPHINE 4 MG/1 ML VIAL IV PRN (08:45)
[2019-06-07] MEDS ORDERED: DIGOXIN 0.5 MG/2 ML AMP IV ONE ×2 (10:28→11:30)
[2019-06-07] MEDS ORDERED: POTASSIUM PHOSPHATE 30 MMOL in SODIUM CHLORIDE 0.9% 250 ML IV ONE (12:00)
[2019-06-08] MEDS: ROCURONIUM 500 MG in SODIUM CHLORIDE 0.9% 500 ML IV SCH (00:11)
[2019-06-08] MEDS: INSULIN REGULAR 100 UNIT/ML SUBCUT SCH ×4 (00:43→18:19)
[2019-06-08 04:33] LABS: ABG Base Excess 5.8 MMOL/L (-2.5-2.5); ABG HCO3 29.7 MMOL/L (20-26); ABG PCO2 41.5 MM HG (35-48); ABG PH 7.468 (7.35-7.45); ABG TCO2 27.4 MMOL/L (23-27)
[2019-06-08 05:22] LABS: Basophils # 0.1 10*3/uL (0.0-0.2); Basophils % 0.3 % (0.0-0.8); Hematocrit 26.6 VOL% (35.7-47.0); Hemoglobin 8.5 GM/DL (12.0-16.0); Immature Granulocytes % 4.2 %; Immature Granulocytes Absolute 1.07 #; Lymphocytes # 0.8 10*3/uL (1.4-4.0); Lymphocytes % 3.1 % (21.3-54.2); Mean Corpuscular Volume 90.8 FL (87-102); Mean Platelet Volume 11.5 FL (9.6-12.0); Monocytes % 1.7 % (1.7-12.7); NRBC # 0.02 10*3/uL; Neutrophils % 90.7 % (38.7-73.9); Platelet Count 155 T/CUMM (130-400); Red Blood Count 2.93 MC/CUMM (3.8-5.5); Red Cell Distribution Width 15.8 % (9.3-17.3); White Blood Count 25.2 T/CUMM (4-12)
[2019-06-08 05:33] LABS: Calcium 8.5 MG/DL (8.5-10.1); Osmolality,Calculated 289.3 MOS/KG (273-304)
[2019-06-08 05:49] LABS: Band Neutrophils 2 % (0-10); Hypochromasia 1+; Lymphocytes 2 % (20-55); Metamyelocytes 1 %; Myelocytes 1 %; Nucleated Red Blood Cells 1 (0-5); Segmented Neutrophils 91 % (50-85); Total Cells Counted 100
[2019-06-08 05:50] LABS: Microcytosis Slight; Platelet Estimate Adequate
[2019-06-08] MEDS: ENOXAPARIN 40 MG/0.4 ML SYRINGE SUBCUT SCH (08:23)
[2019-06-08] MEDS: predniSONE 20 MG TABLET PO SCH ×3 (08:24→21:40)
[2019-06-08] MEDS: POTASSIUM CHLORIDE 20 MEQ/15 ML UDCUP PER TUBE SCH (08:24)
[2019-06-08] MEDS: PANTOPRAZOLE 40 MG VIAL IV SCH (08:24)
[2019-06-08] MEDS: GABAPENTIN 100 MG CAPSULE NG SCH ×2 (08:24→21:40)
[2019-06-08] MEDS: COENZYME Q10 100 MG CAPSULE PO SCH (08:24)
[2019-06-08] MEDS: MULTIVITAMIN LIQUID (CENTRUM) 60 ML BOTTLE NG SCH (08:28)
[2019-06-08] MEDS ORDERED: AMIODARONE INJ 150 MG in DEXTROSE 5% 100 ML IV ONE (11:49)
[2019-06-08] MEDS ORDERED: AMIODARONE 150 MG/3 ML VIAL ONE (11:54)
[2019-06-08] MEDS ORDERED: AMIODARONE 450 MG/9 ML VIAL IV ONE (11:54)
[2019-06-08] MEDS ORDERED: DIGOXIN 0.5 MG/2 ML AMP ONE (11:54)
[2019-06-08] MEDS ORDERED: POTASSIUM PHOSPHATE 30 MMOL in SODIUM CHLORIDE 0.9% 250 ML IV ONE (12:00)
[2019-06-08] MEDS ORDERED: AMIODARONE INJ 450 MG in DEXTROSE 5% 241 ML IV SCH ×2 (12:00→18:00)
[2019-06-08] MEDS: DIGOXIN 0.5 MG/2 ML AMP IV SCH (12:25)
[2019-06-09] MEDS: INSULIN REGULAR 100 UNIT/ML SUBCUT SCH ×4 (00:12→18:12)
[2019-06-09] MEDS: ROCURONIUM 500 MG in SODIUM CHLORIDE 0.9% 500 ML IV SCH ×2 (02:18→22:42)
[2019-06-09 04:13] LABS: Allen Test Positive; Pt O2 Delivery Device Ventilator
[2019-06-09 04:14] LABS: ABG Base Excess 3.6 MMOL/L (-2.5-2.5); ABG HCO3 28.2 MMOL/L (20-26); ABG PCO2 42.3 MM HG (35-48); ABG PH 7.441 (7.35-7.45); ABG PO2 101.3 MM HG (80-95); ABG TCO2 29.4 MMOL/L (23-27)
[2019-06-09 04:15] LABS: ABG Oxygen Saturation 97.8 % (95-100)
[2019-06-09 05:15] LABS: Calcium 8.4 MG/DL (8.5-10.1); Osmolality,Calculated 289.4 MOS/KG (273-304)
[2019-06-09 05:24] LABS: Basophils # 0.1 10*3/uL (0.0-0.2); Basophils % 0.3 % (0.0-0.8); Hematocrit 24.1 VOL% (35.7-47.0); Hemoglobin 7.5 GM/DL (12.0-16.0); Immature Granulocytes % 5.3 %; Immature Granulocytes Absolute 1.08 #; Lymphocytes # 0.6 10*3/uL (1.4-4.0); Mean Corpuscular HGB Conc 31.1 GM/DL (32-36); Mean Corpuscular Volume 91.6 FL (87-102); Mean Platelet Volume 11.6 FL (9.6-12.0); Monocytes % 1.7 % (1.7-12.7); Neutrophils % 89.7 % (38.7-73.9); Platelet Count 154 T/CUMM (130-400); Red Blood Count 2.63 MC/CUMM (3.8-5.5); Red Cell Distribution Width 15.9 % (9.3-17.3); White Blood Count 20.4 T/CUMM (4-12)
[2019-06-09 07:00] LABS: Band Neutrophils 1 % (0-10); Hypochromasia 1+; Lymphocytes 5 % (20-55); Metamyelocytes 1 %; Promyelocytes 1 %; Segmented Neutrophils 90 % (50-85); Total Cells Counted 100
[2019-06-09 07:01] LABS: Microcytosis Slight; Platelet Estimate Adequate
[2019-06-09] MEDS: PANTOPRAZOLE 40 MG VIAL IV SCH (08:38)
[2019-06-09] MEDS: ENOXAPARIN 40 MG/0.4 ML SYRINGE SUBCUT SCH (08:39)
[2019-06-09] MEDS: POTASSIUM CHLORIDE 20 MEQ/15 ML UDCUP PER TUBE SCH (08:39)
[2019-06-09] MEDS: DIGOXIN 0.5 MG/2 ML AMP IV SCH (08:39)
[2019-06-09] MEDS: GABAPENTIN 100 MG CAPSULE NG SCH ×2 (08:42→20:14)
[2019-06-09] MEDS: COENZYME Q10 100 MG CAPSULE PO SCH (08:43)
[2019-06-09] MEDS: predniSONE 20 MG TABLET PO SCH ×3 (08:43→20:14)
[2019-06-09] MEDS: MULTIVITAMIN LIQUID (CENTRUM) 60 ML BOTTLE NG SCH (08:43)
[2019-06-10] MEDS: INSULIN REGULAR 100 UNIT/ML SUBCUT SCH ×4 (01:36→17:44)
[2019-06-10 03:40] LABS: ABG Base Excess 7.1 MMOL/L (-2.5-2.5); ABG HCO3 30.9 MMOL/L (20-26); ABG Oxygen Saturation 96.9 % (95-100); ABG PCO2 51.4 MM HG (35-48); ABG PH 7.413 (7.35-7.45); ABG TCO2 30.5 MMOL/L (23-27); Allen Test Positive; Pt O2 Delivery Device Ventilator
[2019-06-10 04:53] LABS: Basophils # 0.1 10*3/uL (0.0-0.2); Basophils % 0.3 % (0.0-0.8); Hematocrit 24.9 VOL% (35.7-47.0); Hemoglobin 7.7 GM/DL (12.0-16.0); Immature Granulocytes Absolute 1.07 #; Lymphocytes # 0.7 10*3/uL (1.4-4.0); Lymphocytes % 3.1 % (21.3-54.2); Mean Corpuscular HGB Conc 30.9 GM/DL (32-36); Mean Corpuscular Volume 91.5 FL (87-102); Monocytes % 1.8 % (1.7-12.7); NRBC # 0.04 10*3/uL; Neutrophils % 89.8 % (38.7-73.9); Platelet Count 182 T/CUMM (130-400); Red Blood Count 2.72 MC/CUMM (3.8-5.5); Red Cell Distribution Width 15.9 % (9.3-17.3); White Blood Count 21.3 T/CUMM (4-12)
[2019-06-10 05:12] LABS: Calcium 8.4 MG/DL (8.5-10.1); Osmolality,Calculated 288.4 MOS/KG (273-304)
[2019-06-10 05:49] LABS: Band Neutrophils 9 % (0-10); Lymphocytes 6 % (20-55); Nucleated Red Blood Cells 1 (0-5); Segmented Neutrophils 83 % (50-85); Total Cells Counted 100
[2019-06-10 05:50] LABS: Hypochromasia 1+
[2019-06-10 05:51] LABS: Microcytosis 1+; Platelet Estimate Adequate
[2019-06-10] MEDS: PANTOPRAZOLE 40 MG VIAL IV SCH (08:22)
[2019-06-10] MEDS: POTASSIUM CHLORIDE 20 MEQ/15 ML UDCUP PER TUBE SCH (08:22)
[2019-06-10] MEDS: COENZYME Q10 100 MG CAPSULE PO SCH (08:22)
[2019-06-10] MEDS: ENOXAPARIN 40 MG/0.4 ML SYRINGE SUBCUT SCH (08:23)
[2019-06-10] MEDS: DIGOXIN 0.5 MG/2 ML AMP IV SCH (08:24)
[2019-06-10] MEDS: MULTIVITAMIN LIQUID (CENTRUM) 60 ML BOTTLE NG SCH (08:24)
[2019-06-10] MEDS: predniSONE 20 MG TABLET PO SCH ×3 (08:29→20:38)
[2019-06-10] MEDS: GABAPENTIN 100 MG CAPSULE NG SCH ×2 (08:29→20:37)
[2019-06-11] MEDS: INSULIN REGULAR 100 UNIT/ML SUBCUT SCH ×4 (00:04→17:53)
[2019-06-11] MEDS: PANTOPRAZOLE 40 MG VIAL IV SCH (08:23)
[2019-06-11] MEDS: GABAPENTIN 100 MG CAPSULE NG SCH ×2 (08:23→20:07)
[2019-06-11] MEDS: predniSONE 20 MG TABLET PO SCH ×3 (08:23→20:07)
[2019-06-11] MEDS: COENZYME Q10 100 MG CAPSULE PO SCH (08:23)
[2019-06-11] MEDS: ENOXAPARIN 40 MG/0.4 ML SYRINGE SUBCUT SCH (08:23)
[2019-06-11] MEDS: DIGOXIN 0.5 MG/2 ML AMP IV SCH (08:24)
[2019-06-11 08:25] LABS: ABG Base Excess 9.6 MMOL/L (-2.5-2.5); ABG HCO3 33.3 MMOL/L (20-26); ABG Oxygen Saturation 95.5 % (95-100); ABG PCO2 45.3 MM HG (35-48); ABG PH 7.486 (7.35-7.45); ABG PO2 70.7 MM HG (80-95); ABG TCO2 31.7 MMOL/L (23-27)
[2019-06-11] MEDS: POTASSIUM CHLORIDE 20 MEQ/15 ML UDCUP PER TUBE SCH (08:25)
[2019-06-11] MEDS: MULTIVITAMIN LIQUID (CENTRUM) 60 ML BOTTLE NG SCH (08:25)
[2019-06-11 09:11] LABS: Basophils # 0.1 10*3/uL (0.0-0.2); Basophils % 0.2 % (0.0-0.8); Hematocrit 26.7 VOL% (35.7-47.0); Hemoglobin 8.1 GM/DL (12.0-16.0); Immature Granulocytes % 5.6 %; Immature Granulocytes Absolute 1.17 #; Lymphocytes # 1.6 10*3/uL (1.4-4.0); Lymphocytes % 7.4 % (21.3-54.2); Mean Corpuscular HGB Conc 30.3 GM/DL (32-36); Mean Corpuscular Volume 93.4 FL (87-102); Mean Platelet Volume 11.2 FL (9.6-12.0); Monocytes % 1.7 % (1.7-12.7); Neutrophils % 85.1 % (38.7-73.9); Platelet Count 225 T/CUMM (130-400); Red Blood Count 2.86 MC/CUMM (3.8-5.5); White Blood Count 21.1 T/CUMM (4-12)
[2019-06-11 09:31] LABS: Band Neutrophils 3 % (0-10); Hypochromasia 1+; Lymphocytes 9 % (20-55); Microcytosis Slight; Platelet Estimate Adequate; Segmented Neutrophils 85 % (50-85); Total Cells Counted 100
[2019-06-11 09:46] LABS: Calcium 8.9 MG/DL (8.5-10.1); Osmolality,Calculated 289.1 MOS/KG (273-304)
[2019-06-11] MEDS ORDERED: FUROSEMIDE 40 MG/4 ML VIAL IV ONE (14:23)
[2019-06-11] MEDS ORDERED: DILTIAZEM 50 MG/10 ML VIAL IV ONE (15:20)
[2019-06-11] MEDS ORDERED: dilTIAZem Drip 125 MG/125 ML PREMIX IV SCH (15:30)
[2019-06-11] MEDS ORDERED: AMIODARONE INJ 150 MG in DEXTROSE 5% 100 ML IV ONE (17:13)
[2019-06-11] MEDS ORDERED: AMIODARONE INJ 450 MG in DEXTROSE 5% 241 ML IV SCH (17:30)
[2019-06-11] MEDS: AMIODARONE INJ 450 MG in DEXTROSE 5% 241 ML IV SCH (23:50)
[2019-06-12] MEDS: INSULIN REGULAR 100 UNIT/ML SUBCUT SCH ×4 (00:27→18:27)
[2019-06-12] MEDS: PANTOPRAZOLE 40 MG VIAL IV SCH (08:25)
[2019-06-12] MEDS: GABAPENTIN 100 MG CAPSULE NG SCH ×2 (08:26→20:35)
[2019-06-12] MEDS: COENZYME Q10 100 MG CAPSULE PO SCH (08:26)
[2019-06-12] MEDS: predniSONE 20 MG TABLET PO SCH ×3 (08:26→20:35)
[2019-06-12] MEDS: POTASSIUM CHLORIDE 20 MEQ/15 ML UDCUP PER TUBE SCH (08:26)
[2019-06-12] MEDS: MULTIVITAMIN LIQUID (CENTRUM) 60 ML BOTTLE NG SCH (08:27)
[2019-06-12] MEDS: ENOXAPARIN 40 MG/0.4 ML SYRINGE SUBCUT SCH (08:27)
[2019-06-12] MEDS: AMIODARONE INJ 450 MG in DEXTROSE 5% 241 ML IV SCH (15:47)
[2019-06-12] MEDS: METOPROLOL TARTRATE 25 MG TABLET PO SCH (20:35)
[2019-06-13] MEDS: INSULIN REGULAR 100 UNIT/ML SUBCUT SCH ×4 (00:14→17:16)
[2019-06-13 03:16] LABS: Allen Test Positive; Pt O2 Delivery Device Ventilator
[2019-06-13 03:18] LABS: ABG Base Excess 10.8 MMOL/L (-2.5-2.5); ABG HCO3 34.6 MMOL/L (20-26); ABG Oxygen Saturation 96.5 % (95-100); ABG PCO2 52.5 MM HG (35-48); ABG PH 7.448 (7.35-7.45); ABG PO2 78.3 MM HG (80-95); ABG TCO2 33.8 MMOL/L (23-27)
[2019-06-13 05:15] LABS: Basophils # 0.1 10*3/uL (0.0-0.2); Basophils % 0.2 % (0.0-0.8); Hematocrit 26.4 VOL% (35.7-47.0); Hemoglobin 7.9 GM/DL (12.0-16.0); Immature Granulocytes % 4.2 %; Immature Granulocytes Absolute 0.89 #; Lymphocytes # 0.9 10*3/uL (1.4-4.0); Lymphocytes % 4.1 % (21.3-54.2); Mean Corpuscular HGB Conc 29.9 GM/DL (32-36); Mean Corpuscular Volume 96.4 FL (87-102); Mean Platelet Volume 11.7 FL (9.6-12.0); NRBC # 0.09 10*3/uL; Neutrophils % 90.5 % (38.7-73.9); Platelet Count 236 T/CUMM (130-400); Red Blood Count 2.74 MC/CUMM (3.8-5.5); Red Cell Distribution Width 16.2 % (9.3-17.3)
[2019-06-13 05:30] LABS: Osmolality,Calculated 288.4 MOS/KG (273-304)
[2019-06-13 05:38] LABS: Band Neutrophils 3 % (0-10); Hypochromasia 2+; Lymphocytes 4 % (20-55); Nucleated Red Blood Cells 2 (0-5); Platelet Estimate Adequate; Segmented Neutrophils 91 % (50-85); Total Cells Counted 100
[2019-06-13 05:39] LABS: Microcytosis Slight
[2019-06-13] MEDS: COENZYME Q10 100 MG CAPSULE PO SCH (08:31)
[2019-06-13] MEDS: GABAPENTIN 100 MG CAPSULE NG SCH ×2 (08:31→21:44)
[2019-06-13] MEDS: METOPROLOL TARTRATE 25 MG TABLET PO SCH ×2 (08:31→21:44)
[2019-06-13] MEDS: POTASSIUM CHLORIDE 20 MEQ/15 ML UDCUP PER TUBE SCH (08:32)
[2019-06-13] MEDS: PANTOPRAZOLE 40 MG VIAL IV SCH (08:32)
[2019-06-13] MEDS: ENOXAPARIN 40 MG/0.4 ML SYRINGE SUBCUT SCH (08:32)
[2019-06-13] MEDS: predniSONE 20 MG TABLET PO SCH ×3 (08:32→21:44)
[2019-06-13] MEDS: MULTIVITAMIN LIQUID (CENTRUM) 60 ML BOTTLE NG SCH (08:34)
[2019-06-13] MEDS: DIGOXIN 0.5 MG/2 ML AMP IV SCH (09:25)
[2019-06-14] MEDS: INSULIN REGULAR 100 UNIT/ML SUBCUT SCH ×5 (01:32→23:26)
[2019-06-14 04:28] LABS: ABG HCO3 30.6 MMOL/L (20-26); ABG Oxygen Saturation 93.2 % (95-100); ABG PCO2 45.4 MM HG (35-48); ABG PH 7.447 (7.35-7.45); ABG PO2 67.1 MM HG (80-95); Allen Test Positive; Pt O2 Delivery Device Ventilator
[2019-06-14 05:13] LABS: Basophils # 0.1 10*3/uL (0.0-0.2); Basophils % 0.2 % (0.0-0.8); Hematocrit 27.7 VOL% (35.7-47.0); Hemoglobin 7.9 GM/DL (12.0-16.0); Immature Granulocytes % 3.3 %; Immature Granulocytes Absolute 0.69 #; Lymphocytes # 0.8 10*3/uL (1.4-4.0); Lymphocytes % 3.9 % (21.3-54.2); Mean Corpuscular HGB Conc 28.5 GM/DL (32-36); Mean Corpuscular Volume 99.6 FL (87-102); Mean Platelet Volume 11.6 FL (9.6-12.0); Monocytes % 1.2 % (1.7-12.7); NRBC # 0.08 10*3/uL; Neutrophils % 91.4 % (38.7-73.9); Platelet Count 245 T/CUMM (130-400); Red Blood Count 2.78 MC/CUMM (3.8-5.5); Red Cell Distribution Width 16.4 % (9.3-17.3)
[2019-06-14 05:24] LABS: Calcium 8.8 MG/DL (8.5-10.1); Osmolality,Calculated 286.5 MOS/KG (273-304)
[2019-06-14 05:53] LABS: Band Neutrophils 1 % (0-10); Hypochromasia 1+; Lymphocytes 2 % (20-55); Microcytosis Slight; Nucleated Red Blood Cells 1 (0-5); Platelet Estimate Adequate; Segmented Neutrophils 97 % (50-85); Total Cells Counted 100
[2019-06-14] MEDS: MULTIVITAMIN LIQUID (CENTRUM) 60 ML BOTTLE NG SCH (08:00)
[2019-06-14] MEDS: COENZYME Q10 100 MG CAPSULE PO SCH (08:01)
[2019-06-14] MEDS: ENOXAPARIN 40 MG/0.4 ML SYRINGE SUBCUT SCH (08:01)
[2019-06-14] MEDS: METOPROLOL TARTRATE 25 MG TABLET PO SCH ×2 (08:01→20:09)
[2019-06-14] MEDS: GABAPENTIN 100 MG CAPSULE NG SCH ×2 (08:01→20:09)
[2019-06-14] MEDS: predniSONE 20 MG TABLET PO SCH ×3 (08:01→20:09)
[2019-06-14] MEDS: POTASSIUM CHLORIDE 20 MEQ/15 ML UDCUP PER TUBE SCH (08:02)
[2019-06-14] MEDS: DIGOXIN 0.5 MG/2 ML AMP IV SCH (08:02)
[2019-06-14] MEDS: PANTOPRAZOLE 40 MG VIAL IV SCH (08:03)
[2019-06-15] MEDS: INSULIN REGULAR 100 UNIT/ML SUBCUT SCH ×3 (05:38→18:06)
[2019-06-15] MEDS: MULTIVITAMIN LIQUID (CENTRUM) 60 ML BOTTLE NG SCH (08:16)
[2019-06-15] MEDS: ENOXAPARIN 40 MG/0.4 ML SYRINGE SUBCUT SCH (08:17)
[2019-06-15] MEDS: PANTOPRAZOLE 40 MG VIAL IV SCH (08:17)
[2019-06-15] MEDS: POTASSIUM CHLORIDE 20 MEQ/15 ML UDCUP PER TUBE SCH (08:17)
[2019-06-15] MEDS: METOPROLOL TARTRATE 25 MG TABLET PO SCH ×2 (08:18→20:17)
[2019-06-15] MEDS: DIGOXIN 0.5 MG/2 ML AMP IV SCH (08:18)
[2019-06-15] MEDS: predniSONE 20 MG TABLET PO SCH ×3 (08:18→20:17)
[2019-06-15] MEDS: COENZYME Q10 100 MG CAPSULE PO SCH (08:18)
[2019-06-15] MEDS: GABAPENTIN 100 MG CAPSULE NG SCH ×2 (08:18→20:17)
[2019-06-15 13:16] LABS: ABG HCO3 26.2 MMOL/L (20-26); ABG PH 7.331 (7.35-7.45); ABG TCO2 26.9 MMOL/L (23-27)
[2019-06-15] MEDS: FLUCONAZOLE INJ 400 MG in PREMIX 1 EACH IV SCH (17:32)
[2019-06-16] MEDS: INSULIN REGULAR 100 UNIT/ML SUBCUT SCH ×6 (00:04→23:29)
[2019-06-16 04:59] LABS: ABG Base Excess 3.3 MMOL/L (-2.5-2.5); ABG HCO3 27.4 MMOL/L (20-26); ABG Oxygen Saturation 99.2 % (95-100); ABG PCO2 55.5 MM HG (35-48); ABG PH 7.338 (7.35-7.45); ABG TCO2 28.2 MMOL/L (23-27); Allen Test Positive; Pt O2 Delivery Device Ventilator
[2019-06-16 05:36] LABS: Basophils % 0.3 % (0.0-0.8); Hematocrit 23.1 VOL% (35.7-47.0); Hemoglobin 6.7 GM/DL (12.0-16.0); Immature Granulocytes % 5.5 %; Immature Granulocytes Absolute 0.85 #; Lymphocytes # 0.7 10*3/uL (1.4-4.0); Lymphocytes % 4.4 % (21.3-54.2); Mean Corpuscular Volume 97.5 FL (87-102); Mean Platelet Volume 11.8 FL (9.6-12.0); Monocytes % 1.6 % (1.7-12.7); Neutrophils % 88.2 % (38.7-73.9); Platelet Count 205 T/CUMM (130-400); Red Blood Count 2.37 MC/CUMM (3.8-5.5); Red Cell Distribution Width 15.9 % (9.3-17.3); White Blood Count 15.4 T/CUMM (4-12)
[2019-06-16 06:22] LABS: Calcium 8.3 MG/DL (8.5-10.1)
[2019-06-16] MEDS: MULTIVITAMIN LIQUID (CENTRUM) 60 ML BOTTLE NG SCH (08:25)
[2019-06-16] MEDS: POTASSIUM CHLORIDE 20 MEQ/15 ML UDCUP PER TUBE SCH (08:26)
[2019-06-16] MEDS: PANTOPRAZOLE 40 MG VIAL IV SCH (08:26)
[2019-06-16] MEDS: ENOXAPARIN 40 MG/0.4 ML SYRINGE SUBCUT SCH (08:27)
[2019-06-16] MEDS: GABAPENTIN 100 MG CAPSULE NG SCH ×2 (08:27→20:43)
[2019-06-16] MEDS: predniSONE 20 MG TABLET PO SCH ×3 (08:27→21:15)
[2019-06-16] MEDS: COENZYME Q10 100 MG CAPSULE PO SCH (08:27)
[2019-06-16] MEDS: METOPROLOL TARTRATE 25 MG TABLET PO SCH ×2 (08:27→20:43)
[2019-06-16] MEDS ORDERED: SODIUM CHLORIDE 0.9% 1,000 ML IV PRN (09:38)
[2019-06-16] MEDS ORDERED: FUROSEMIDE 20 MG/2 ML VIAL IV ONE (09:41)
[2019-06-16] MEDS ORDERED: NOREPINEPHRINE 8 MG in SODIUM CHLORIDE 0.9% 242 ML IV PRN (10:20)
[2019-06-16 11:03] LABS: Band Neutrophils 5 % (0-10); Metamyelocytes 2 %; Myelocytes 2 %; Polychromasia Few; Segmented Neutrophils 91 % (50-85); Total Cells Counted 100
[2019-06-16 11:04] LABS: Anisocytosis 2+; Hypochromasia 3+; Macrocytosis Slight; Microcytosis 3+; Ovalocytes Slight; Platelet Estimate Normal; Poikilocytosis 2+; Tear Drop Cells Few
[2019-06-16] MEDS: DIGOXIN 0.125 MG TABLET PO SCH (12:16)
[2019-06-16] MEDS: FLUCONAZOLE INJ 400 MG in PREMIX 1 EACH IV SCH (17:51)
[2019-06-16 18:26] LABS: Hematocrit 39.2 VOL% (35.7-47.0)
[2019-06-16 18:28] LABS: Hemoglobin 11.7 GM/DL (12.0-16.0)
[2019-06-17 04:55] LABS: Allen Test Positive; Pt O2 Delivery Device Ventilator
[2019-06-17 04:58] LABS: ABG Base Excess 1.9 MMOL/L (-2.5-2.5); ABG Oxygen Saturation 95.8 % (95-100); ABG PCO2 60.5 MM HG (35-48); ABG PH 7.304 (7.35-7.45); ABG PO2 79.8 MM HG (80-95); ABG TCO2 26.6 MMOL/L (23-27)
[2019-06-17 05:23] LABS: Basophils % 0.2 % (0.0-0.8); Hematocrit 39.5 VOL% (35.7-47.0); Hemoglobin 12.1 GM/DL (12.0-16.0); Immature Granulocytes % 7.2 %; Immature Granulocytes Absolute 1.13 #; Lymphocytes # 0.9 10*3/uL (1.4-4.0); Lymphocytes % 5.8 % (21.3-54.2); Mean Corpuscular HGB Conc 30.6 GM/DL (32-36); Mean Corpuscular Volume 91.4 FL (87-102); Mean Platelet Volume 11.6 FL (9.6-12.0); Monocytes % 1.9 % (1.7-12.7); NRBC # 0.19 10*3/uL; Neutrophils % 84.9 % (38.7-73.9); Platelet Count 216 T/CUMM (130-400); Red Blood Count 4.32 MC/CUMM (3.8-5.5); White Blood Count 15.7 T/CUMM (4-12)
[2019-06-17 05:33] LABS: Calcium 8.6 MG/DL (8.5-10.1); Osmolality,Calculated 283.5 MOS/KG (273-304)
[2019-06-17 05:43] LABS: Band Neutrophils 2 % (0-10); Hypochromasia Slight; Lymphocytes 4 % (20-55); Nucleated Red Blood Cells 4 (0-5); Platelet Estimate Adequate; Segmented Neutrophils 93 % (50-85); Total Cells Counted 100
[2019-06-17 05:44] LABS: Microcytosis 1+
[2019-06-17] MEDS: INSULIN REGULAR 100 UNIT/ML SUBCUT SCH ×4 (05:50→23:51)
[2019-06-17] MEDS: MULTIVITAMIN LIQUID (CENTRUM) 60 ML BOTTLE NG SCH (08:38)
[2019-06-17] MEDS: PANTOPRAZOLE 40 MG VIAL IV SCH (08:40)
[2019-06-17] MEDS: COENZYME Q10 100 MG CAPSULE PO SCH (08:41)
[2019-06-17] MEDS: ENOXAPARIN 40 MG/0.4 ML SYRINGE SUBCUT SCH (08:41)
[2019-06-17] MEDS: POTASSIUM CHLORIDE 20 MEQ/15 ML UDCUP PER TUBE SCH (08:41)
[2019-06-17] MEDS: METOPROLOL TARTRATE 25 MG TABLET PO SCH ×2 (08:41→20:18)
[2019-06-17] MEDS: predniSONE 20 MG TABLET PO SCH ×2 (08:41→20:18)
[2019-06-17] MEDS: GABAPENTIN 100 MG CAPSULE NG SCH ×2 (08:41→20:18)
[2019-06-17] MEDS: DIGOXIN 0.125 MG TABLET PO SCH (12:00)
[2019-06-17] MEDS ORDERED: FUROSEMIDE 40 MG/4 ML VIAL IV ONE (13:16)
[2019-06-17] MEDS ORDERED: POTASSIUM PHOSPHATE 30 MMOL in SODIUM CHLORIDE 0.9% 250 ML IV ONE (16:00)
[2019-06-17] MEDS: FLUCONAZOLE INJ 400 MG in PREMIX 1 EACH IV SCH (17:47)
[2019-06-18 04:17] LABS: ABG Base Excess 4.9 MMOL/L (-2.5-2.5); ABG HCO3 28.8 MMOL/L (20-26); ABG Oxygen Saturation 96.2 % (95-100); ABG PO2 81.3 MM HG (80-95); ABG TCO2 28.2 MMOL/L (23-27); Allen Test Positive; Pt O2 Delivery Device Ventilator
[2019-06-18 05:02] LABS: Basophils # 0.1 10*3/uL (0.0-0.2); Basophils % 0.7 % (0.0-0.8); Hematocrit 39.3 VOL% (35.7-47.0); Immature Granulocytes % 5.5 %; Immature Granulocytes Absolute 0.77 #; Lymphocytes # 0.7 10*3/uL (1.4-4.0); Lymphocytes % 4.9 % (21.3-54.2); Mean Corpuscular HGB Conc 30.5 GM/DL (32-36); Mean Corpuscular Volume 91.8 FL (87-102); Mean Platelet Volume 11.4 FL (9.6-12.0); Monocytes % 2.1 % (1.7-12.7); NRBC # 0.07 10*3/uL; Neutrophils % 86.8 % (38.7-73.9); Platelet Count 225 T/CUMM (130-400); Red Blood Count 4.28 MC/CUMM (3.8-5.5); Red Cell Distribution Width 17.3 % (9.3-17.3); White Blood Count 13.9 T/CUMM (4-12)
[2019-06-18 05:14] LABS: Calcium 8.2 MG/DL (8.5-10.1); Osmolality,Calculated 292.1 MOS/KG (273-304)
[2019-06-18 05:29] LABS: Band Neutrophils 2 % (0-10); Hypochromasia 1+; Lymphocytes 10 % (20-55); Platelet Estimate Adequate; Segmented Neutrophils 87 % (50-85); Total Cells Counted 100
[2019-06-18 05:30] LABS: Microcytosis 1+
[2019-06-18] MEDS: INSULIN REGULAR 100 UNIT/ML SUBCUT SCH (06:15)
[2019-06-18] MEDS: ENOXAPARIN 40 MG/0.4 ML SYRINGE SUBCUT SCH (09:21)
[2019-06-18] MEDS: COENZYME Q10 100 MG CAPSULE PO SCH (09:21)
[2019-06-18] MEDS: MULTIVITAMIN LIQUID (CENTRUM) 60 ML BOTTLE NG SCH (09:21)
[2019-06-18] MEDS: METOPROLOL TARTRATE 25 MG TABLET PO SCH (09:21)
[2019-06-18] MEDS: PANTOPRAZOLE 40 MG VIAL IV SCH (09:22)
[2019-06-18] MEDS: GABAPENTIN 100 MG CAPSULE NG SCH (09:22)
[2019-06-18] MEDS: predniSONE 20 MG TABLET PO SCH (09:22)
[2019-06-18] MEDS: POTASSIUM CHLORIDE 20 MEQ/15 ML UDCUP PER TUBE SCH (09:22)
[2019-06-18] MEDS ORDERED: MORPHINE 4 MG/1 ML VIAL ONE (14:15)
[2019-06-18] MEDS: MORPHINE 4 MG/1 ML VIAL IV PRN ×4 (14:16→20:16)
[2019-06-18 20:53] VITALS: BP 76/42
== END 2019-06-18 21:20 | disposition expired | DRG 207 ==
LOC: EDUNIT# → EDBD → N.ED 19:00 → N.EDINP 23:11 → SUATTDRO 23:11 → N.2E 23:52 → N.2W 05-29 18:37 → N.ICU 05-31 06:01 → N.CC 06-02 20:08
PROVIDERS: ADMIT Family Medicine; ATTEND Internal Medicine